=== PATIENT | male | born 1985 | race Caucasian/White ===

== ENCOUNTER 2019-02-03 12:46 | Inpatient (IN) | payer MEDICAID, MEDICARE ==
[2019-02-03] MEDS ORDERED: Piperacillin/Tazobactam 4.5 GM VIAL ONE (13:10)
[2019-02-03] MEDS ORDERED: Sodium Chloride 0.9% 1,000 ML IV SCH (13:30)
[2019-02-03] MEDS ORDERED: HYDROcodone/Acetaminophen 5/325 mg Tablet PO PRN ×2 (13:30)
[2019-02-03] MEDS ORDERED: Ondansetron PF 4 MG/2 ML Vial IVP PRN ×2 (13:30→16:23)
[2019-02-03] MEDS ORDERED: Ondansetron ODT 4 MG TAB SL PRN (13:30)
[2019-02-03] MEDS ORDERED: Acetaminophen 325 MG TAB PO PRN (13:30)
[2019-02-03 13:33] LABS: Hemoglobin 14.4 g/dL (14.0-18.0); Mean Corpuscular HGB CONC 31.2 g/dL (32.0-36.0); Mean Corpuscular Hemoglobin 25.8 pg (27.0-31.0); Mean Corpuscular Volume 82.8 fL (78.0-98.0); Mean Platelet Volume 8.1 fL (7.4-10.4); Platelet Count 197 thou/uL (130-400); RBC Distribution Width 13.6 % (11.5-14.5); Red Blood Cell (RBC) Count 5.56 mill/uL (4.70-6.10); White Blood Cell (WBC) Count 25.2 thou/uL (4.8-10.8)
[2019-02-03 13:59] LABS: Band 15 % (5-11); Hypochromia SLIGHT = 6-15 cells (100X) (0-5/hpf); Lymphocytes 9 % (21-51); MDiff Complete? YES; Monocytes 7 % (0-10); Neutrophil 69 % (42-75); Platelet Morphology Comment Appears Adequate; Polychromasia SLIGHT = 2-3 cells (100X) (0-2/hpf); Stomatocytes SLIGHT = 2-5 cells (100X) (0-1/hpf)
[2019-02-03 14:26] LABS: ALT (SGPT) 23 U/L (8-55); AST (SGOT) 27 U/L (5-34); Alkaline Phosphatase 62 U/L (40-150); Anion Gap 13 mmol/L (10-20); BUN (Urea Nitrogen) 17 mg/dL (8.9-20.6); Bilirubin, Total 1.1 mg/dL (0.2-1.2); Calc. Creatinine Clearance 0 mL/min (70-130); Calcium 9.3 mg/dL (7.8-10.44); Carbon Dioxide 28 mmol/L (22-29); Chloride 100 mmol/L (98-107); Estimated GFR-MDRD 58; Globulin 3.7 g/dL (2.4-3.5); Glucose 107 mg/dL (70-105); Potassium 3.5 mmol/L (3.5-5.1); Protein, Total 7.7 g/dL (6.0-8.3); Sodium 137 mmol/L (136-145)
--- NOTE | 2019-02-03 14:36 | RAD ---
RIGHT TIBIA FIBULA 2 VIEWS: HISTORY: Erythema and pain. COMPARISON: None. FINDINGS: No fracture. No cortical irregularity or periosteal reaction. IMPRESSION: Unremarkable 2 views right tibia/fibula. POS: [facility]
--- NOTE | 2019-02-03 14:47 | ULT ---
RIGHT LOWER EXTREMITY VENOUS DOPPLER: DATE: 02/03/2019. PROVIDED CLINICAL HISTORY: RIGHT lower extremity pain. FINDINGS: Luevano scale and color Doppler sonography with spectral analysis was performed of the right common femo ral, femoral, popliteal, posterior tibial, greater saphenous, and profunda femoral veins, demonstrati ng normal sonographic appearance to each. IMPRESSION: No sonographic evidence for right lower extremity deep venous thrombosis. POS: [facility]
--- NOTE | 2019-02-03 14:56 | CT ---
CT OF THE RIGHT FORELEG WITHOUT CONTRAST: DATE: 02/03/2019. PROVIDED CLINICAL HISTORY: Right lower extremity pain and redness. FINDINGS: There is nonspecific reticulation of the subcutaneous adipose layer circumferentially about the forel eg, predominating distally. There is no density alteration involving the intermuscular fat or the in tramuscular fat. There is no evidence for soft tissue gas. Alignment appears anatomic. Joint space s appear preserved. No significant knee joint fluid is present. There is no evidence for fracture o r other acute osseous abnormality. No lytic or blastic process is seen. IMPRESSION: Nonspecific reticulation of the subcutaneous adipose layer involving the right foreleg, likely reflec ting cellulitis in the appropriate clinical context. There is no CT evidence for fasciitis or myosit is. No evidence for focal fluid collection to suggest abscess with limitations due to lack of IV con trast. POS: [facility]
[2019-02-03 15:30] VITALS: BMI 38.2
[2019-02-03] MEDS ORDERED: Senokot S 8.6-50 MG TAB PO PRN (16:23)
[2019-02-03] MEDS ORDERED: Calcium Carbonate 500 MG ChewTAB PO PRN (16:23)
[2019-02-03] MEDS ORDERED: Bisacodyl 10 MG SUPP PR PRN (16:23)
[2019-02-03] MEDS ORDERED: Ondansetron ODT 4 MG TAB PO PRN (16:23)
[2019-02-03] MEDS ORDERED: hydrALAZINE 20 MG/ML VIAL SLOW IVP PRN (16:25)
[2019-02-03] MEDS ORDERED: Vancomycin HCl 1 GM in Premix Bag 1 BAG IVPB SCH (16:30)
[2019-02-03] MEDS: Sodium Chloride 0.9% 1,000 ML IV SCH (16:50)
[2019-02-03] MEDS: cefTRIAXone\\ROCEPHIN 1 GM in Sodium Chloride 0.9% 100 ML IVPB SCH (16:50)
--- NOTE | 2019-02-03 17:05 | HP ---
PRIMARY CARE PHYSICIAN: Trevor Goodwin. The patient saw Dr. Kushal Stanley in 2011. He has not seen any PCP since then. CHIEF COMPLAINT: Right leg swelling of 2 days duration along with fever and chills. HISTORY OF PRESENT ILLNESS: The patient is a 33-year-old male who presented to the emergency room with above symptoms. Over the last 2 to 3 days, the patient noticed gradual worsening redness along with warmth in the right lower extremity. He cannot recall any injuries. He also started developing pain in the right lower extremity that was getting worse. He also had some discomfort in the right groin. This morning, he started developing fever and chills along with nausea. He felt generally weak and fatigued. He then presented to the emergency room. He denies recent immobilization, travel. No dysuria, hematuria, urgency, cough, shortness of breath, wheezing reported. In the emergency room, initial vital signs showed temperature 99.5 respiration of 14, pulse rate of 114, with a blood pressure 125/83 with O2 saturation 95% on room air. Right lower extremity Doppler was negative for DVT. CT of the right lower extremity showed changes consistent with cellulitis without any abscess. X-ray of the right tibia-fibula was negative. He received vancomycin and Zosyn in the emergency room. Blood cultures were sent. PAST MEDICAL HISTORY: 1. Hypertension, currently not taking any medications. 2. Obesity with a BMI of 38.3. PAST SURGICAL HISTORY: 1. Hernia repair. 2. Intervention for renal stone in 2012. ALLERGIES: THE PATIENT IS ALLERGIC TO CODEINE. CURRENT HOME MEDICATIONS: Reviewed with the patient and none. SOCIAL HISTORY: The patient drinks alcohol socially. He smokes cigarettes on and off. He currently lives at home with his family. FAMILY HISTORY: Positive for heart disease and diabetes mellitus type 2. REVIEW OF SYSTEMS: All other review of systems were reviewed and were found negative. PHYSICAL EXAMINATION: VITAL SIGNS: Temperature 99.5, respirations 14, pulse 114, with blood pressure 125/83, O2 saturation 95% on room air. GENERAL: A 33-year-old male in no apparent distress. Right lower extremity discomfort. HEENT: Head; atraumatic, normocephalic. Sclerae anicteric. Moist mucous membranes. No oral lesion. NECK: Supple. No JVD appreciated. No carotid bruit. LUNGS: Clear to auscultation bilaterally. No wheezing, rales, rhonchi. HEART: S1, S2 present. Regular rate and rhythm. No rubs or gallops appreciated. ABDOMEN: Soft, obese, bowel sounds present. No rebound or guarding. No costovertebral angle tenderness. EXTREMITIES: Significant erythema along with swelling in the right lower extremity. There are superficial abrasions over the medial aspect of the right leg, probably the source of entry. No joint swelling noted. There is 2+ edema in right lower extremity. No swelling in the left lower extremity. SKIN: As discussed above. LYMPH NODE: No palpable lymph nodes in the neck. PERIPHERAL VASCULAR: Radial pulses palpable bilaterally. MUSCULOSKELETAL: No joint swelling or tenderness. LABORATORY FINDINGS: CBC showed WBC 25.2, hemoglobin 14.4, hematocrit 46.1, platelet count of 197, bandemia of 15%. Chemistries showed sodium 137, potassium 3.5, chloride 100, bicarb 28, BUN 17, and creatinine 1.4. Lactic acid was normal. Creatinine in 2016 was 1.05. Right lower extremity CT and x-ray, by my review as discussed above. IMPRESSION: 1. Sepsis secondary to right lower extremity cellulitis. 2. History of hypertension, currently on no antihypertensives. 3. Codeine allergy. 4. Obesity with a BMI of 38.3. 5. Mild acute kidney injury on chronic kidney disease stage 2. PLAN: The patient will be monitored in the medical floor. We will continue IV vancomycin with Zosyn. Full of. We will avoid nephrotoxic agents. Pain controlled with Tylenol. Recheck labs in a.m. The patient was counseled to be compliant with follow up with primary care physician. IV hydration for acute kidney injury. Monitor vancomycin level. Plan of care was discussed with the patient in detail. He stated understanding. Job ID: [id number]
[2019-02-03] MEDS: Acetaminophen 325 MG TAB PO PRN ×2 (17:20→22:42)
[2019-02-03] MEDS ORDERED: Piperacillin/Tazobactam 3.375 GM in Sodium Chloride 0.9% 100 ML IVPB SCH (22:00)
[2019-02-03] MEDS ORDERED: Morphine 4 MG/ML VIAL SLOW IVP SCH (22:30)
[2019-02-04] MEDS: Vancomycin HCl 1.75 GM in Sodium Chloride 0.9% 500 ML IVPB SCH ×2 (02:57→14:26)
[2019-02-04] MEDS: Sodium Chloride 0.9% 1,000 ML IV SCH ×2 (04:28→17:29)
[2019-02-04 06:47] LABS: Band 34 % (5-11); Hemoglobin 13.2 g/dL (14.0-18.0); Lymphocytes 7 % (21-51); MDiff Complete? YES; Mean Corpuscular HGB CONC 31.2 g/dL (32.0-36.0); Mean Corpuscular Hemoglobin 26.2 pg (27.0-31.0); Mean Corpuscular Volume 83.8 fL (78.0-98.0); Mean Platelet Volume 8.2 fL (7.4-10.4); Monocytes 4 % (0-10); Neutrophil 52 % (42-75); Platelet Count 171 thou/uL (130-400); Platelet Morphology Comment Appears Adequate; RBC Distribution Width 13.6 % (11.5-14.5); Reactive Lymphocytes 1 % (0-10); Red Blood Cell (RBC) Count 5.06 mill/uL (4.70-6.10)
[2019-02-04 06:53] LABS: Anion Gap 9 mmol/L (10-20); BUN (Urea Nitrogen) 13 mg/dL (8.9-20.6); Calc. Creatinine Clearance 148 mL/min (70-130); Calcium 8.8 mg/dL (7.8-10.44); Carbon Dioxide 29 mmol/L (22-29); Chloride 102 mmol/L (98-107); Estimated GFR-MDRD 71; Glucose 101 mg/dL (70-105); Potassium 3.3 mmol/L (3.5-5.1); Sodium 137 mmol/L (136-145)
[2019-02-04] MEDS: Acetaminophen 325 MG TAB PO PRN (08:06)
[2019-02-04] MEDS: Saccharomyces boulardii 250 MG CAP PO SCH (08:06)
[2019-02-04] MEDS ORDERED: Ketorolac Tromethamine 30 MG/ML VIAL IVP PRN (10:59)
--- NOTE | 2019-02-04 17:11 | PDOC.PN ---
- Subjective Encounter Start Date: 02/04/19 Encounter Start Time: 09:45 Patient seen and examined for Sepsis. RLE erythema improving. No new complaints. No overnight events - Objective Resuscitation Status - Order Detail: 02/03/19 16:23 Resuscitation Status Routine Resuscitation Status: FULL: Full Resuscitation MAR Reviewed: Yes Vital Signs & Weight: Vital Signs (12 hours) Temp Pulse Resp BP Pulse Ox 02/04/19 16:50 99.0 F 101 H 16 146/80 H 94 L 02/04/19 11:44 98.9 F 94 16 132/90 95 02/04/19 08:00 94 L 02/04/19 07:45 99.9 F H 103 H 18 136/74 94 L Weight Weight 259 lb 3.2 oz Result Diagrams: 02/04/19 06:09 02/04/19 06:09 Additional Labs: Laboratory Tests 02/04/19 06:09 Potassium 3.3 L Phys Exam - Physical Examination Constitutional: NAD Respiratory: no wheezing, no rhonchi Cardiovascular: RRR, no rub Gastrointestinal: soft, non-tender, positive bowel sounds Musculoskeletal: edema present Erythema RLE - improving Neurological: moves all 4 limbs Dx/Plan - Plan out of bed/ambulate, DVT proph w/SCDs IMPRESSION: 1. Sepsis secondary to right lower extremity cellulitis. 2. History of hypertension 3. Codeine allergy. 4. Obesity with a BMI of 38.3. 5. Mild acute kidney injury on chronic kidney disease stage 2. 6. Hypokalemia PLAN: Cont IV Vancomycin/Ceftriaxone Monitor Vancomycin level AM labs Replace Potassium Ambulate Cont IVF Review of Systems - Review of Systems Cardiovascular: negative: chest pain, palpitations, orthopnea, paroxysmal nocturnal dyspnea, edema, light headedness, other Gastrointestinal: negative: Nausea, Vomiting, Abdominal Pain, Diarrhea, Constipation, Melena, Hematochezia, Other - Medications/Allergies Allergies/Adverse Reactions: Allergies Allergy/AdvReac Type Severity Reaction Status Date / Time codeine Allergy Verified 02/03/19 15:22 Medications: Current Medications Acetaminophen (Tylenol) 650 mg PO Q4H PRN PRN Reason: Headache/Fever/Mild Pain (1-3) Last Admin: 02/04/19 08:06 Dose: 650 mg Bisacodyl (Dulcolax) 10 mg [place] DAILYPRN PRN PRN Reason: Constipation Calcium Carbonate (Tums) 1,000 mg PO Q4H PRN PRN Reason: Heartburn or Indigestion Hydralazine HCl (Apresoline) 10 mg SLOW IVP Q4H PRN PRN Reason: SBP Greater Than 180 Sodium Chloride (Normal Saline 0.9%) 1,000 mls @ 75 mls/hr IV .[id number] [facility] Last Admin: 02/04/19 04:28 Dose: Not Given Ceftriaxone Sodium 1 gm/ (Sodium Chloride) 100 mls @ 200 mls/hr IVPB Q24HR [facility] Last Admin: 02/03/19 16:50 Dose: 100 mls Vancomycin HCl 1.75 gm/ Sodium (Chloride) 500 mls @ 250 mls/hr IVPB 0200,1400 [facility] Last Admin: 02/04/19 14:26 Dose: 500 mls Ibuprofen (Motrin) 400 mg PO Q6H PRN PRN Reason: Pain Influenza Virus Vaccine Quadrival (Fluzone Quad [id number] Syringe) 0.5 ml IM .ONCE ONE Stop: 02/05/19 09:01 Ketorolac Tromethamine (Toradol) 15 mg IVP Q6H PRN PRN Reason: Severe Pain (7-10) Stop: 02/09/19 11:00 Last Admin: 02/04/19 13:09 Dose: 15 mg Miscellaneous Medication (Pharmacy To Dose) 0 each IVPB PRN PRN PRN Reason: Pharmacy to dose [facility] Ondansetron HCl (Zofran Odt) 4 mg PO Q6H PRN PRN Reason: Nausea/Vomiting Ondansetron HCl (Zofran) 4 mg IVP Q6H PRN PRN Reason: Nausea/Vomiting Pneumococcal Polyvalent Vaccine (Pneumovax 23) 0.5 ml IM .ONCE ONE Stop: 02/05/19 09:01 Potassium Chloride (K-Dur) 20 meq PO BID-[facility] Stop: 02/05/19 08:01 Saccharomyces Boulardii (Florastor) 250 mg PO DAILY [facility] Last Admin: 02/04/19 08:06 Dose: 250 mg Senna/Docusate Sodium (Senokot S) 2 tab PO BID PRN PRN Reason: Constipation
[2019-02-04] MEDS: cefTRIAXone\\ROCEPHIN 1 GM in Sodium Chloride 0.9% 100 ML IVPB SCH (17:27)
[2019-02-04] MEDS: Ibuprofen 200 MG TAB PO PRN (17:28)
[2019-02-04] MEDS: Potassium Chloride 20 MEQ TAB PO SCH (17:28)
[2019-02-05 01:48] LABS: Vancomycin, Trough 13.3 ug/mL
[2019-02-05] MEDS: Vancomycin HCl 1.75 GM in Sodium Chloride 0.9% 500 ML IVPB SCH ×2 (02:02→13:24)
[2019-02-05] MEDS: Acetaminophen 325 MG TAB PO PRN (04:49)
[2019-02-05] MEDS: Saccharomyces boulardii 250 MG CAP PO SCH (08:22)
[2019-02-05] MEDS: Potassium Chloride 20 MEQ TAB PO SCH (08:22)
[2019-02-05] MEDS: Ibuprofen 200 MG TAB PO PRN (08:22)
[2019-02-05] MEDS: Sodium Chloride 0.9% 1,000 ML IV SCH ×2 (08:23→22:03)
[2019-02-05 08:31] LABS: #Basophils 0.1 thou/uL (0.0-0.2); #Eosinphils 0.4 thou/uL (0.0-0.7); #Lymphocytes 1.5 thou/uL (1.20-3.40); #Monocytes 0.9 thou/uL (0.11-0.59); #Neutrophils 10.9 thou/uL (1.40-6.50); %Basophils 0.5 % (0.0-1.0); %Eosinophils 2.7 % (0.0-10.0); %Lymphocytes 10.6 % (21.0-51.0); %Monocytes 6.7 % (0.0-10.0); %Neutrophils 79.5 % (42.0-75.0); Hemoglobin 12.9 g/dL (14.0-18.0); Mean Corpuscular Hemoglobin 25.9 pg (27.0-31.0); Mean Corpuscular Volume 83.4 fL (78.0-98.0); Mean Platelet Volume 8.7 fL (7.4-10.4); Platelet Count 185 thou/uL (130-400); RBC Distribution Width 13.6 % (11.5-14.5); Red Blood Cell (RBC) Count 4.98 mill/uL (4.70-6.10); White Blood Cell (WBC) Count 13.7 thou/uL (4.8-10.8)
[2019-02-05 08:43] LABS: Anion Gap 12 mmol/L (10-20); BUN (Urea Nitrogen) 12 mg/dL (8.9-20.6); Calc. Creatinine Clearance 175 mL/min (70-130); Calcium 8.7 mg/dL (7.8-10.44); Carbon Dioxide 25 mmol/L (22-29); Chloride 106 mmol/L (98-107); Estimated GFR-MDRD 87; Glucose 109 mg/dL (70-105); Magnesium 1.8 mg/dL (1.6-2.6); Potassium 3.5 mmol/L (3.5-5.1); Sodium 139 mmol/L (136-145)
[2019-02-05] MEDS: cefTRIAXone\\ROCEPHIN 1 GM in Sodium Chloride 0.9% 100 ML IVPB SCH (19:20)
--- NOTE | 2019-02-05 20:56 | PDOC.PN ---
- Subjective Encounter Start Date: 02/05/19 Encounter Start Time: 10:30 Patient seen and examined for Cellulitis. RLE swelling improving. No new complaints. No overnight events - Objective Resuscitation Status - Order Detail: 02/03/19 16:23 Resuscitation Status Routine Resuscitation Status: FULL: Full Resuscitation MAR Reviewed: Yes Vital Signs & Weight: Vital Signs (12 hours) Temp Pulse Resp BP Pulse Ox 02/05/19 20:24 99.1 F 100 16 164/109 H 100 02/05/19 11:00 98.5 F 92 18 134/94 H 95 Weight Weight 259 lb 3.2 oz I&O: 02/04/19 02/05/19 02/06/19 06:59 06:59 06:59 Intake Total 1400 Output Total 700 Balance 700 Result Diagrams: 02/05/19 07:54 02/05/19 07:54 Phys Exam - Physical Examination Constitutional: NAD Respiratory: no wheezing, no rhonchi Cardiovascular: RRR, no rub Gastrointestinal: soft, non-tender, positive bowel sounds Musculoskeletal: edema present RLE erythema Dx/Plan - Plan DVT proph w/SCDs 1. Sepsis secondary to RLE cellulitis. 2. History of hypertension 3. Codeine allergy. 4. Obesity with a BMI of 38.3. 5. Mild acute kidney injury on CKD stage 2. 6. Hypokalemia PLAN: Cont IV Vancomycin/Ceftriaxone Monitor Vancomycin level Reduce IVF Review of Systems - Review of Systems Respiratory: negative: Cough, Dry, Shortness of Breath, Hemoptysis, SOB with Excertion, Pleuritic Pain, Sputum, Wheezing Cardiovascular: negative: chest pain, palpitations, orthopnea, paroxysmal nocturnal dyspnea, edema, light headedness, other - Medications/Allergies Allergies/Adverse Reactions: Allergies Allergy/AdvReac Type Severity Reaction Status Date / Time codeine Allergy Verified 02/03/19 15:22 Medications: Current Medications Acetaminophen (Tylenol) 650 mg PO Q4H PRN PRN Reason: Headache/Fever/Mild Pain (1-3) Last Admin: 02/05/19 04:49 Dose: 650 mg Bisacodyl (Dulcolax) 10 mg [place] DAILYPRN PRN PRN Reason: Constipation Calcium Carbonate (Tums) 1,000 mg PO Q4H PRN PRN Reason: Heartburn or Indigestion Hydralazine HCl (Apresoline) 10 mg SLOW IVP Q4H PRN PRN Reason: SBP Greater Than 180 Ceftriaxone Sodium 1 gm/ (Sodium Chloride) 100 mls @ 200 mls/hr IVPB Q24HR [facility] Last Admin: 02/05/19 19:20 Dose: 100 mls Vancomycin HCl 1.75 gm/ Sodium (Chloride) 500 mls @ 250 mls/hr IVPB 0200,1400 [facility] Last Admin: 02/05/19 13:24 Dose: 500 mls Sodium Chloride (Normal Saline 0.9%) 1,000 mls @ 50 mls/hr IV .Q20H [facility] Ibuprofen (Motrin) 400 mg PO Q6H PRN PRN Reason: Pain Last Admin: 02/05/19 08:22 Dose: 400 mg Miscellaneous Medication (Pharmacy To Dose) 0 each IVPB PRN PRN PRN Reason: Pharmacy to dose [facility] Ondansetron HCl (Zofran Odt) 4 mg PO Q6H PRN PRN Reason: Nausea/Vomiting Ondansetron HCl (Zofran) 4 mg IVP Q6H PRN PRN Reason: Nausea/Vomiting Saccharomyces Boulardii (Florastor) 250 mg PO DAILY [facility] Last Admin: 02/05/19 08:22 Dose: 250 mg Senna/Docusate Sodium (Senokot S) 2 tab PO BID PRN PRN Reason: Constipation
[2019-02-05] MEDS ORDERED: Labetalol HCl 100 MG/20 ML VIAL SLOW IVP PRN (23:25)
[2019-02-06] MEDS: Acetaminophen 325 MG TAB PO PRN ×2 (00:18→08:31)
[2019-02-06] MEDS: Vancomycin HCl 1.75 GM in Sodium Chloride 0.9% 500 ML IVPB SCH ×2 (03:08→13:04)
[2019-02-06] MEDS: Saccharomyces boulardii 250 MG CAP PO SCH (08:31)
[2019-02-06] MEDS: Ibuprofen 200 MG TAB PO PRN (13:04)
[2019-02-06] MEDS: cefTRIAXone\\ROCEPHIN 1 GM in Sodium Chloride 0.9% 100 ML IVPB SCH (18:28)
[2019-02-06] MEDS: Sodium Chloride 0.9% 1,000 ML IV SCH (18:29)
--- NOTE | 2019-02-06 21:27 | PDOC.PN ---
- Subjective Encounter Start Date: 02/06/19 Encounter Start Time: 11:00 Patient seen and examined for Sepsis. RLE swelling erythema improving. No new complaints. No overnight events - Objective Resuscitation Status - Order Detail: 02/03/19 16:23 Resuscitation Status Routine Resuscitation Status: FULL: Full Resuscitation MAR Reviewed: Yes Vital Signs & Weight: Vital Signs (12 hours) Temp Pulse Resp BP Pulse Ox 02/06/19 20:00 99.4 F 99 20 166/106 H 96 02/06/19 17:47 97.9 F 95 20 154/88 H 96 02/06/19 12:00 98.9 F 88 20 149/89 H 97 Weight Admit Weight 259 lb 3.2 oz Weight 259 lb 3.2 oz I&O: 02/05/19 02/06/19 02/07/19 06:59 06:59 06:59 Intake Total 1400 Output Total 700 Balance 700 Result Diagrams: 02/05/19 07:54 02/05/19 07:54 Phys Exam - Physical Examination Constitutional: NAD Respiratory: no wheezing, no rhonchi Cardiovascular: RRR, no rub Gastrointestinal: soft, non-tender, positive bowel sounds Musculoskeletal: edema present RLE erythema improving Dx/Plan - Plan DVT proph w/SCDs 1. Sepsis secondary to RLE cellulitis - improving 2. Hypertension 3. Codeine allergy. 4. Obesity with a BMI of 38.3. 5. Mild acute kidney injury on CKD stage 2. 6. Hypokalemia PLAN: AM labs DC IVF Cont IV Vancomycin/Ceftriaxone Vancomycin level in AM Review of Systems - Review of Systems Respiratory: negative: Cough, Dry, Shortness of Breath, Hemoptysis, SOB with Excertion, Pleuritic Pain, Sputum, Wheezing Cardiovascular: negative: chest pain, palpitations, orthopnea, paroxysmal nocturnal dyspnea, edema, light headedness, other - Medications/Allergies Allergies/Adverse Reactions: Allergies Allergy/AdvReac Type Severity Reaction Status Date / Time codeine Allergy Verified 02/03/19 15:22 Medications: Current Medications Acetaminophen (Tylenol) 650 mg PO Q4H PRN PRN Reason: Headache/Fever/Mild Pain (1-3) Last Admin: 02/06/19 08:31 Dose: 650 mg Bisacodyl (Dulcolax) 10 mg [place] DAILYPRN PRN PRN Reason: Constipation Calcium Carbonate (Tums) 1,000 mg PO Q4H PRN PRN Reason: Heartburn or Indigestion Hydralazine HCl (Apresoline) 10 mg SLOW IVP Q4H PRN PRN Reason: SBP Greater Than 180 Last Admin: 02/05/19 22:17 Dose: 10 mg Ceftriaxone Sodium 1 gm/ (Sodium Chloride) 100 mls @ 200 mls/hr IVPB Q24HR [facility] Last Admin: 02/06/19 18:28 Dose: 100 mls Vancomycin HCl 1.75 gm/ Sodium (Chloride) 500 mls @ 250 mls/hr IVPB 0200,1400 [facility] Last Admin: 02/06/19 13:04 Dose: 500 mls Ibuprofen (Motrin) 400 mg PO Q6H PRN PRN Reason: Pain Last Admin: 02/06/19 13:04 Dose: 400 mg Labetalol HCl (Normodyne) 20 mg SLOW IVP Q4H PRN PRN Reason: SBP > 170 and HR >/= 70 Miscellaneous Medication (Pharmacy To Dose) 0 each IVPB PRN PRN PRN Reason: Pharmacy to dose [facility] Ondansetron HCl (Zofran Odt) 4 mg PO Q6H PRN PRN Reason: Nausea/Vomiting Ondansetron HCl (Zofran) 4 mg IVP Q6H PRN PRN Reason: Nausea/Vomiting Saccharomyces Boulardii (Florastor) 250 mg PO DAILY [facility] Last Admin: 02/06/19 08:31 Dose: 250 mg Senna/Docusate Sodium (Senokot S) 2 tab PO BID PRN PRN Reason: Constipation Sodium Chloride (Flush - Normal Saline) 10 ml IVF Q12HR [facility] Last Admin: 02/06/19 20:36 Dose: 10 ml Sodium Chloride (Flush - Normal Saline) 10 ml IVF PRN PRN PRN Reason: Saline Flush
[2019-02-07] MEDS: Acetaminophen 325 MG TAB PO PRN ×2 (00:07→15:53)
[2019-02-07 01:33] LABS: Vancomycin, Trough 14.3 ug/mL
[2019-02-07] MEDS: Vancomycin HCl 1.75 GM in Sodium Chloride 0.9% 500 ML IVPB SCH ×2 (01:49→15:49)
[2019-02-07 06:32] LABS: #Basophils 0.1 thou/uL (0.0-0.2); #Eosinphils 0.7 thou/uL (0.0-0.7); #Neutrophils 10.4 thou/uL (1.40-6.50); %Basophils 0.6 % (0.0-1.0); %Eosinophils 4.9 % (0.0-10.0); %Lymphocytes 14.2 % (21.0-51.0); %Monocytes 7.3 % (0.0-10.0); Hemoglobin 12.9 g/dL (14.0-18.0); Mean Corpuscular HGB CONC 32.1 g/dL (32.0-36.0); Mean Corpuscular Hemoglobin 26.3 pg (27.0-31.0); Mean Corpuscular Volume 81.9 fL (78.0-98.0); Platelet Count 250 thou/uL (130-400); RBC Distribution Width 13.4 % (11.5-14.5); Red Blood Cell (RBC) Count 4.92 mill/uL (4.70-6.10); White Blood Cell (WBC) Count 14.3 thou/uL (4.8-10.8)
[2019-02-07 06:48] LABS: Anion Gap 13 mmol/L (10-20); BUN (Urea Nitrogen) 9 mg/dL (8.9-20.6); Calc. Creatinine Clearance 204 mL/min (70-130); Carbon Dioxide 24 mmol/L (22-29); Chloride 105 mmol/L (98-107); Estimated GFR-MDRD Greater than 90; Glucose 92 mg/dL (70-105); Potassium 3.6 mmol/L (3.5-5.1); Sodium 138 mmol/L (136-145)
[2019-02-07] MEDS: Ibuprofen 200 MG TAB PO PRN (08:48)
[2019-02-07] MEDS: Saccharomyces boulardii 250 MG CAP PO SCH (08:48)
[2019-02-07] MEDS: Amlodipine 5 MG TAB PO SCH (11:15)
[2019-02-07] MEDS: cefTRIAXone\\ROCEPHIN 1 GM in Sodium Chloride 0.9% 100 ML IVPB SCH (18:24)
--- NOTE | 2019-02-07 21:42 | PDOC.PN ---
- Subjective Encounter Start Date: 02/07/19 Encounter Start Time: 09:30 Patient seen and examined for cellulitis. RLE erythema improving. No new complaints. No overnight events - Objective Resuscitation Status - Order Detail: 02/03/19 16:23 Resuscitation Status Routine Resuscitation Status: FULL: Full Resuscitation MAR Reviewed: Yes Vital Signs & Weight: Vital Signs (12 hours) Pulse BP BP 02/07/19 15:55 127/79 02/07/19 11:15 107 H 165/104 H Weight Admit Weight 259 lb 3.2 oz Weight 259 lb 3.2 oz Result Diagrams: 02/07/19 06:11 02/07/19 06:11 Phys Exam - Physical Examination Constitutional: NAD Respiratory: no wheezing, no rhonchi Cardiovascular: RRR, no rub Gastrointestinal: soft, non-tender, positive bowel sounds Musculoskeletal: edema present (RLE with improving erythema. few blisters) Dx/Plan - Plan 1. Sepsis secondary to RLE cellulitis. 2. Hypertension 3. Codeine allergy. 4. Obesity with a BMI of 38.3. 5. Mild acute kidney injury on CKD stage 2. 6. Hypokalemia PLAN: Cont IV Vancomycin/Ceftriaxone for 24-48 hr Vancomycin level in AM Cont wound care Prob dc in 24-48 hr if stable Review of Systems - Review of Systems Respiratory: negative: Cough, Dry, Shortness of Breath, Hemoptysis, SOB with Excertion, Pleuritic Pain, Sputum, Wheezing Cardiovascular: negative: chest pain, palpitations, orthopnea, paroxysmal nocturnal dyspnea, edema, light headedness, other - Medications/Allergies Allergies/Adverse Reactions: Allergies Allergy/AdvReac Type Severity Reaction Status Date / Time codeine Allergy Verified 02/03/19 15:22 Medications: Current Medications Acetaminophen (Tylenol) 650 mg PO Q4H PRN PRN Reason: Headache/Fever/Mild Pain (1-3) Last Admin: 02/07/19 15:53 Dose: 650 mg Amlodipine Besylate (Norvasc) 2.5 mg PO DAILY [facility] Last Admin: 02/07/19 11:15 Dose: 2.5 mg Bisacodyl (Dulcolax) 10 mg [place] DAILYPRN PRN PRN Reason: Constipation Calcium Carbonate (Tums) 1,000 mg PO Q4H PRN PRN Reason: Heartburn or Indigestion Clonidine (Catapres) 0.1 mg PO Q4H PRN PRN Reason: Systolic BP > 160 Hydralazine HCl (Apresoline) 10 mg SLOW IVP Q4H PRN PRN Reason: SBP Greater Than 180 Last Admin: 02/05/19 22:17 Dose: 10 mg Ceftriaxone Sodium 1 gm/ (Sodium Chloride) 100 mls @ 200 mls/hr IVPB Q24HR [facility] Last Admin: 02/07/19 18:24 Dose: 100 mls Vancomycin HCl 1.75 gm/ Sodium (Chloride) 500 mls @ 250 mls/hr IVPB 0200,1400 [facility] Last Admin: 02/07/19 15:49 Dose: 500 mls Ibuprofen (Motrin) 400 mg PO Q6H PRN PRN Reason: Pain Last Admin: 02/07/19 08:48 Dose: 400 mg Miscellaneous Medication (Pharmacy To Dose) 0 each IVPB PRN PRN PRN Reason: Pharmacy to dose [facility] Ondansetron HCl (Zofran Odt) 4 mg PO Q6H PRN PRN Reason: Nausea/Vomiting Ondansetron HCl (Zofran) 4 mg IVP Q6H PRN PRN Reason: Nausea/Vomiting Saccharomyces Boulardii (Florastor) 250 mg PO DAILY [facility] Last Admin: 02/07/19 08:48 Dose: 250 mg Senna/Docusate Sodium (Senokot S) 2 tab PO BID PRN PRN Reason: Constipation Sodium Chloride (Flush - Normal Saline) 10 ml IVF Q12HR [facility] Last Admin: 02/07/19 08:48 Dose: 10 ml Sodium Chloride (Flush - Normal Saline) 10 ml IVF PRN PRN PRN Reason: Saline Flush
[2019-02-08] MEDS: Vancomycin HCl 1.75 GM in Sodium Chloride 0.9% 500 ML IVPB SCH ×2 (01:07→13:30)
[2019-02-08] MEDS: cloNIDine 0.1 MG TAB PO PRN (09:13)
[2019-02-08] MEDS: Amlodipine 5 MG TAB PO SCH ×2 (09:14→20:29)
[2019-02-08] MEDS: Saccharomyces boulardii 250 MG CAP PO SCH (09:14)
[2019-02-08] MEDS: Ibuprofen 200 MG TAB PO PRN (13:35)
[2019-02-08 13:43] LABS: Vancomycin, Trough 14.8 ug/mL
[2019-02-08] MEDS: cefTRIAXone\\ROCEPHIN 1 GM in Sodium Chloride 0.9% 100 ML IVPB SCH (16:51)
--- NOTE | 2019-02-08 22:51 | PDOC.PN ---
- Subjective Encounter Start Date: 02/08/19 Encounter Start Time: 11:00 Patient seen and examined for RLE Cellulitis. Unable to ambulate due to significant RLE pain. No new complaints. No overnight events - Objective Resuscitation Status - Order Detail: 02/03/19 16:23 Resuscitation Status Routine Resuscitation Status: FULL: Full Resuscitation MAR Reviewed: Yes Vital Signs & Weight: Vital Signs (12 hours) Temp Pulse Resp BP BP BP Pulse Ox 02/08/19 20:29 79 151/82 H 02/08/19 19:00 98.3 F 79 20 151/82 H 96 02/08/19 17:05 98.7 F 93 18 160/85 H 96 02/08/19 11:38 98.7 F 98 18 143/90 H 97 Weight Admit Weight 259 lb 3.2 oz Weight 259 lb 3.2 oz Result Diagrams: 02/09/19 05:31 02/09/19 05:31 Phys Exam - Physical Examination Constitutional: NAD Respiratory: no wheezing, no rhonchi Cardiovascular: RRR, no rub Gastrointestinal: soft, non-tender, positive bowel sounds Musculoskeletal: edema present RLE erythema - dressing present Neurological: moves all 4 limbs Dx/Plan - Plan DVT proph w/SCDs 1. Sepsis secondary to RLE cellulitis. 2. Hypertension 3. Codeine allergy. 4. Obesity with a BMI of 38.3. 5. Mild acute kidney injury on CKD stage 2. 6. Hypokalemia PLAN: DC IV Vancomycin Change IV Ceftriaxone to BID Cont wound care Prob dc in 24-48 hr if stable Walking program Review of Systems - Review of Systems Respiratory: negative: Cough, Dry, Shortness of Breath, Hemoptysis, SOB with Excertion, Pleuritic Pain, Sputum, Wheezing Cardiovascular: negative: chest pain, palpitations, orthopnea, paroxysmal nocturnal dyspnea, edema, light headedness, other - Medications/Allergies Allergies/Adverse Reactions: Allergies Allergy/AdvReac Type Severity Reaction Status Date / Time codeine Allergy Verified 02/03/19 15:22 Medications: Current Medications Acetaminophen (Tylenol) 650 mg PO Q4H PRN PRN Reason: Headache/Fever/Mild Pain (1-3) Last Admin: 02/07/19 15:53 Dose: 650 mg Amlodipine Besylate (Norvasc) 2.5 mg PO BID [facility] Last Admin: 02/08/19 20:29 Dose: 2.5 mg Bisacodyl (Dulcolax) 10 mg [place] DAILYPRN PRN PRN Reason: Constipation Calcium Carbonate (Tums) 1,000 mg PO Q4H PRN PRN Reason: Heartburn or Indigestion Clonidine (Catapres) 0.1 mg PO Q4H PRN PRN Reason: Systolic BP > 160 Last Admin: 02/08/19 09:13 Dose: 0.1 mg Hydralazine HCl (Apresoline) 10 mg SLOW IVP Q4H PRN PRN Reason: SBP Greater Than 180 Last Admin: 02/05/19 22:17 Dose: 10 mg Ceftriaxone Sodium 1 gm/ (Sodium Chloride) 100 mls @ 200 mls/hr IVPB Q24HR [facility] Last Admin: 02/08/19 16:51 Dose: 100 mls Vancomycin HCl 1.75 gm/ Sodium (Chloride) 500 mls @ 250 mls/hr IVPB 0200,1400 [facility] Last Admin: 02/08/19 13:30 Dose: 500 mls Ibuprofen (Motrin) 400 mg PO Q6H PRN PRN Reason: Pain Last Admin: 02/08/19 13:35 Dose: 400 mg Miscellaneous Medication (Pharmacy To Dose) 0 each IVPB PRN PRN PRN Reason: Pharmacy to dose [facility] Ondansetron HCl (Zofran Odt) 4 mg PO Q6H PRN PRN Reason: Nausea/Vomiting Ondansetron HCl (Zofran) 4 mg IVP Q6H PRN PRN Reason: Nausea/Vomiting Saccharomyces Boulardii (Florastor) 250 mg PO DAILY [facility] Last Admin: 02/08/19 09:14 Dose: 250 mg Senna/Docusate Sodium (Senokot S) 2 tab PO BID PRN PRN Reason: Constipation Sodium Chloride (Flush - Normal Saline) 10 ml IVF Q12HR [facility] Last Admin: 02/08/19 20:31 Dose: 10 ml Sodium Chloride (Flush - Normal Saline) 10 ml IVF PRN PRN PRN Reason: Saline Flush
[2019-02-09] MEDS: Vancomycin HCl 1.75 GM in Sodium Chloride 0.9% 500 ML IVPB SCH (01:08)
[2019-02-09 06:41] LABS: #Basophils 0.1 thou/uL (0.0-0.2); #Eosinphils 0.9 thou/uL (0.0-0.7); #Lymphocytes 2.2 thou/uL (1.20-3.40); #Monocytes 1.1 thou/uL (0.11-0.59); #Neutrophils 8.7 thou/uL (1.40-6.50); %Basophils 0.7 % (0.0-1.0); %Eosinophils 6.8 % (0.0-10.0); %Monocytes 8.6 % (0.0-10.0); %Neutrophils 66.9 % (42.0-75.0); Mean Corpuscular HGB CONC 31.6 g/dL (32.0-36.0); Mean Corpuscular Hemoglobin 26.4 pg (27.0-31.0); Mean Corpuscular Volume 83.6 fL (78.0-98.0); Mean Platelet Volume 7.7 fL (7.4-10.4); Platelet Count 352 thou/uL (130-400); RBC Distribution Width 13.2 % (11.5-14.5); Red Blood Cell (RBC) Count 4.94 mill/uL (4.70-6.10)
[2019-02-09 07:01] LABS: Anion Gap 12 mmol/L (10-20); BUN (Urea Nitrogen) 11 mg/dL (8.9-20.6); Calc. Creatinine Clearance 197 mL/min (70-130); Calcium 9.3 mg/dL (7.8-10.44); Carbon Dioxide 27 mmol/L (22-29); Chloride 102 mmol/L (98-107); Estimated GFR-MDRD Greater than 90; Glucose 87 mg/dL (70-105); Potassium 3.8 mmol/L (3.5-5.1); Sodium 137 mmol/L (136-145)
[2019-02-09] MEDS: cefTRIAXone\\ROCEPHIN 1 GM in Sodium Chloride 0.9% 100 ML IVPB SCH ×2 (07:43→20:35)
[2019-02-09] MEDS: Amlodipine 5 MG TAB PO SCH ×2 (07:44→20:35)
[2019-02-09] MEDS: Saccharomyces boulardii 250 MG CAP PO SCH (07:44)
[2019-02-09] MEDS: Enoxaparin Sodium 40 MG/0.4 ML SYRINGE SC SCH (07:45)
--- NOTE | 2019-02-09 22:23 | PDOC.PN ---
- Subjective Encounter Start Date: 02/09/19 Encounter Start Time: 12:30 Patient seen and examined for Cellulitis. No fever/chills. RLE pain +. No new complaints. No overnight events - Objective Resuscitation Status - Order Detail: 02/03/19 16:23 Resuscitation Status Routine Resuscitation Status: FULL: Full Resuscitation MAR Reviewed: Yes Vital Signs & Weight: Vital Signs (12 hours) Temp Pulse Resp BP BP Pulse Ox 02/09/19 20:35 90 102/66 02/09/19 20:25 95 02/09/19 19:00 99.0 F 108 H 17 168/87 H 96 02/09/19 16:00 99.0 F 109 H 18 144/83 H 95 02/09/19 11:00 99.1 F 97 18 155/90 H 94 L Weight Admit Weight 259 lb 3.2 oz Weight 259 lb 3.2 oz Result Diagrams: 02/09/19 05:31 02/09/19 05:31 EKG Reviewed by me: Yes Phys Exam - Physical Examination Constitutional: NAD Respiratory: no wheezing, no rhonchi Cardiovascular: RRR, no rub Gastrointestinal: soft, non-tender, positive bowel sounds Musculoskeletal: edema present RLE erythema Neurological: non-focal, moves all 4 limbs Dx/Plan - Plan DVT proph w/SCDs 1. Sepsis secondary to RLE cellulitis. 2. Hypertension 3. Codeine allergy. 4. Obesity with a BMI of 38.3. 5. Mild acute kidney injury on CKD stage 2. 6. Hypokalemia PLAN: Cont IV Ceftriaxone with wound care Prob dc in 24-48 hr if stable Cont current meds as below Review of Systems - Review of Systems Respiratory: negative: Cough, Dry, Shortness of Breath, Hemoptysis, SOB with Excertion, Pleuritic Pain, Sputum, Wheezing Cardiovascular: negative: chest pain, palpitations, orthopnea, paroxysmal nocturnal dyspnea, edema, light headedness, other - Medications/Allergies Allergies/Adverse Reactions: Allergies Allergy/AdvReac Type Severity Reaction Status Date / Time codeine Allergy Verified 02/03/19 15:22 Medications: Current Medications Acetaminophen (Tylenol) 650 mg PO Q4H PRN PRN Reason: Headache/Fever/Mild Pain (1-3) Last Admin: 02/07/19 15:53 Dose: 650 mg Amlodipine Besylate (Norvasc) 2.5 mg PO BID [facility] Last Admin: 02/09/19 20:35 Dose: 2.5 mg Bisacodyl (Dulcolax) 10 mg MO DAILYPRN PRN PRN Reason: Constipation Calcium Carbonate (Tums) 1,000 mg PO Q4H PRN PRN Reason: Heartburn or Indigestion Clonidine (Catapres) 0.1 mg PO Q4H PRN PRN Reason: Systolic BP > 160 Last Admin: 02/08/19 09:13 Dose: 0.1 mg Enoxaparin Sodium (Lovenox) 40 mg SC 0900 [facility] Last Admin: 02/09/19 07:45 Dose: 40 mg Hydralazine HCl (Apresoline) 10 mg SLOW IVP Q4H PRN PRN Reason: SBP Greater Than 180 Last Admin: 02/05/19 22:17 Dose: 10 mg Ceftriaxone Sodium 1 gm/ (Sodium Chloride) 100 mls @ 200 mls/hr IVPB 0800,2000 [facility] Last Admin: 02/09/19 20:35 Dose: 100 mls Ibuprofen (Motrin) 400 mg PO Q6H PRN PRN Reason: Pain Last Admin: 02/08/19 13:35 Dose: 400 mg Ondansetron HCl (Zofran Odt) 4 mg PO Q6H PRN PRN Reason: Nausea/Vomiting Ondansetron HCl (Zofran) 4 mg IVP Q6H PRN PRN Reason: Nausea/Vomiting Saccharomyces Boulardii (Florastor) 250 mg PO DAILY [facility] Last Admin: 02/09/19 07:44 Dose: 250 mg Senna/Docusate Sodium (Senokot S) 2 tab PO BID PRN PRN Reason: Constipation Sodium Chloride (Flush - Normal Saline) 10 ml IVF Q12HR [facility] Last Admin: 02/09/19 20:36 Dose: 10 ml Sodium Chloride (Flush - Normal Saline) 10 ml IVF PRN PRN PRN Reason: Saline Flush
[2019-02-10] MEDS: Acetaminophen 325 MG TAB PO PRN ×2 (09:08→17:08)
[2019-02-10] MEDS: cefTRIAXone\\ROCEPHIN 1 GM in Sodium Chloride 0.9% 100 ML IVPB SCH ×2 (09:08→21:16)
[2019-02-10] MEDS: Saccharomyces boulardii 250 MG CAP PO SCH (09:09)
[2019-02-10] MEDS: Enoxaparin Sodium 40 MG/0.4 ML SYRINGE SC SCH (09:10)
[2019-02-10] MEDS: Amlodipine 5 MG TAB PO SCH ×2 (09:51→21:17)
[2019-02-10] MEDS: Ibuprofen 200 MG TAB PO PRN (11:36)
[2019-02-10] MEDS: cloNIDine 0.1 MG TAB PO PRN (12:04)
--- NOTE | 2019-02-11 07:17 | PRG ---
DATE OF SERVICE: 02/10/2019 SUBJECTIVE: The patient is seen and examined at the bedside. He does not have much complaints to offer. He is not in much pain. His appetite is fair. OBJECTIVE: VITAL SIGNS: Blood pressure is 162/88, pulse is 99, respiratory rate is 18, O2 saturation is 97% on room air, and his temperature is 98.3, maximal temperature is 99.0. HEENT: Atraumatic and normocephalic. Eyes are PERRLA. Sclerae nonicteric. Oral mucosa is moist. NECK: Supple. LUNGS: Clear. HEART: S1 and S2 normal. ABDOMEN: Soft and nontender. Bowel sounds are present. No organomegaly. EXTREMITIES: The right lower extremity is wrapped below the knee and above the ankle. NEUROLOGIC: He is alert and oriented x4. There are no any motor or sensory deficits present. Cranial nerves are intact. LABORATORY DATA: Labs none today. Biology, blood cultures negative x5 days. IMPRESSION: 1. Right lower extremity cellulitis. 2. Sepsis secondary to right lower extremity cellulitis. 3. Hypertension. 4. Mild acute kidney injury. 5. Hypokalemia. PLAN: Switch him from IV ceftriaxone to . Job ID: [id number]
[2019-02-11 07:45] VITALS: BP 157/90; TEMP 97.8
[2019-02-11] MEDS: cefTRIAXone\\ROCEPHIN 1 GM in Sodium Chloride 0.9% 100 ML IVPB SCH (08:44)
[2019-02-11] MEDS: Enoxaparin Sodium 40 MG/0.4 ML SYRINGE SC SCH (08:44)
[2019-02-11] MEDS: Saccharomyces boulardii 250 MG CAP PO SCH (08:44)
[2019-02-11] MEDS ORDERED: Amlodipine 5 MG TAB PO SCH (09:00)
[2019-02-11] MEDS ORDERED: Amlodipine 10 MG TAB PO SCH (09:00)
--- NOTE | 2019-02-11 11:41 | DIS ---
DATE OF ADMISSION: 02/03/2019 DATE OF DISCHARGE: 02/11/2019 FINAL DIAGNOSES: 1. Right lower extremity cellulitis with big blister formation of the right calf. 2. Sepsis secondary to right lower extremity cellulitis. 3. Hypertension. 4. Mild kidney injury. 5. Hypokalemia, resolved. HOSPITAL COURSE: The patient is a 34-year-old male, who presented to the emergency room with right leg swelling of 2 days duration along with fever and chills. He did not have any injury. He started having some pain in the right lower extremity which was getting worse, started developing fever and chills along with nausea. He felt weak and fatigued. He denied any recent immobilization or travel. There was no dysuria, hematuria, urgency, cough, shortness of breath, or wheezing reported. In the emergency room, initial vitals show temperature of 99.5, respirations 14, pulse rate was 114, and blood pressure was 125/83. He was saturating 95% on room air. The right lower extremity Doppler was negative for DVT. CT of the right lower extremity showed changes consistent with cellulitis without any abscess. X-ray of the right tibia/fibula were negative. He received vancomycin and Zosyn in the emergency room and blood cultures were done. At the time of admission, his white count was up to 25.2, hemoglobin 14.4, hematocrit 46.1, platelet count 197. He had bandemia of 15%. Chemistry shows sodium of 137, potassium 3.5, chloride 100, CO2 of 28, BUN 17, creatinine 1.4. Lactic acid was normal. Creatinine in 2016 was 1.05. He was admitted with working diagnosis of sepsis secondary to right lower extremity cellulitis. He was continued on vancomycin and Zosyn. Cultures came back negative. He continued on Zosyn and vancomycin with Wound Care. Zosyn was changed to ceftriaxone, and erythema of the right lower extremity significantly improved. His white count went down to 13,000 two days ago. His vancomycin was stopped and he was continued on IV Rocephin. His temperature gradually went down. The last temperature was 97.8, respiratory rate 22, O2 saturation 97% on room air, and pulse is 93 with blood pressure of 157/90. He was seen and examined before his discharge. His leg looks better. The swelling is significantly down. Erythema is improved, although still present. He formed a big blister which popped on the back of his right leg in the lower part of the calf, but the fluid is serosanguinous. PHYSICAL EXAMINATION: LUNGS: Clear. HEART: S1 and S2 normal. No S3. No S4. No any murmur. ABDOMEN: Soft, obese. NEUROLOGICAL: He is alert and oriented x4. There is no any motor or sensory deficits. DISPOSITION: He is discharged home. DIET: He is going to stay on heart healthy diet with low salt. FOLLOWUP: He will follow up with his primary care physician in [address] Kushal Stanley and he will do appointment in 2 days with [facility]. MEDICATIONS: At the time of discharge: 1. Amlodipine 10 mg once a day. 2. Levofloxacin 500 mg once a day. 3. Senokot-S 2 tablets b.i.d. p.r.n. 4. Tramadol 100 mg 3 times a day p.r.n. 5. He will take Bactrim Double Strength one tablet twice a day and he will have prescription for that. Job ID: [id number]
== END 2019-02-11 14:29 | disposition home or self-care (01) | DRG 872 ==
LOC: ERS 12:46 → T4-A 14:22
PROVIDERS: ADMIT Internal Medicine; ATTEND Internal Medicine
DX: A41.9 Sepsis, unspecified organism (principal); L03.115 Cellulitis of right lower limb; N17.9 Acute kidney failure, unspecified; E66.9 Obesity, unspecified; N18.2 Chronic kidney disease, stage 2 (mild); I12.9 Hypertensive chronic kidney disease with stage 1 through stage 4 chronic kidney disease, or unspecified chronic kidney disease; S80.821A Blister (nonthermal), right lower leg, initial encounter; E87.6 Hypokalemia; Z68.38 Body mass index [BMI] 38.0-38.9, adult; Z88.5 Allergy status to narcotic agent; Z91.14 Patient's other noncompliance with medication regimen; F17.210 Nicotine dependence, cigarettes, uncomplicated
CPT/HCPCS: 36415; 80048; 80053; 80202; 83605; 83735; 85025; 87040; 96361; 96365; 96367; J0360; J0696; J1650; J1885; J2270; J2543; J3370; J7050

== ENCOUNTER 2019-02-25 13:09 | Outpatient (CLI) | payer MEDICARE ==
[2019-02-25] MEDS ORDERED: Sodium Chloride 0.9% 15 ML NEB ONE (17:37)
--- NOTE | 2019-02-25 17:55 | HP ---
HISTORY OF PRESENT ILLNESS: Mr. Christoph Lobo is a very pleasant 34-year-old gentleman, who presents to the wound center for evaluation of an ulceration of the right calf. The patient states that he was discharged from [facility] on 02/11/2019, after admission for sepsis secondary to right lower extremity cellulitis. The patient was admitted to [facility] on 02/03/2019, with right lower extremity cellulitis with the formation of a large blister over the right calf. During the patient's hospital stay, Mr. Lobo received IV antibiotics. He states that he has completed the courses of antibiotics prescribed for him at the time of discharge. The patient states that he has been performing dressing changes of Aquacel for the wound of his right calf on a daily basis with significant improvement in the appearance of the wound. PAST MEDICAL HISTORY: 1. Nephrolithiasis. 2. Hypertension. PAST SURGICAL HISTORY: Hernia repair. MEDICATIONS: 1. Norvasc. 2. Senna. 3. Tramadol as needed. ALLERGIES: CODEINE. SOCIAL HISTORY: Social history significant for tobacco use of 1 cigarettes per day for 15 years. The patient admits to only the occasional consumption of alcohol. FAMILY HISTORY: Family history significant for both diabetes mellitus and coronary artery disease. The patient states that his mother was diagnosed with both diabetes mellitus and coronary artery disease. PHYSICAL EXAMINATION: VITAL SIGNS: Temperature 98.1, pulse 101, respirations 19, and blood pressure 146/80. GENERAL: A 34-year-old gentleman, lying on stretcher in examination room, in no acute distress. HEENT: Normocephalic and atraumatic. NECK: No nuchal rigidity. CHEST: Clear to auscultation. CV: Regular rate and rhythm. ABDOMEN: Soft. EXTREMITIES: An ulceration over the right calf is present, which measures approximately 11.0 x 7.5 cm. Granulation tissue is present within the wound margins. No purulent drainage is associated with the wound. No erythema of the skin surrounding the wound is present. No maceration of the skin of the periwound is noted. A dorsalis pedis pulse is easily palpable on the right. Pxww-uh-odzituud edema of the right foot and lower leg are present on exam today. NEURO: Grossly nonfocal. ASSESSMENT AND PLAN: 1. Chronic venous hypertension with ulcer and inflammation. Xeroform gauze, followed by an ABD, Webril, and the 3M Coban 2 Layer Compression System will be applied to the right calf ulceration today. The patient is to return to the wound center in 1 week. As stated above, the patient has completed the courses of p.o. antibiotics prescribed for him at the time of discharge. The patient has been given a release in order to return to work. 2. Nephrolithiasis. 3. Hypertension. Job ID: [id number]
== END 2019-02-25 13:10 | disposition home or self-care (01) ==
LOC: WCC 13:09
PROVIDERS: ATTEND Family Medicine
DX: I87.331 Chronic venous hypertension (idiopathic) with ulcer and inflammation of right lower extremity (principal); L97.219 Non-pressure chronic ulcer of right calf with unspecified severity; N20.0 Calculus of kidney; I10 Essential (primary) hypertension; Z79.899 Other long term (current) drug therapy; Z88.5 Allergy status to narcotic agent
CPT/HCPCS: 29581; 99203; A4218; G0463

== ENCOUNTER 2019-03-07 15:32 | Outpatient (CLI) | payer MEDICARE ==
--- NOTE | 2019-03-07 15:52 | PRG ---
DATE OF SERVICE: 03/07/2019 HISTORY: Mr. Christoph Lobo is a very pleasant 34-year-old gentleman, who presents to the Wound Center for evaluation of an ulceration of the right calf. The patient previously stated that he was discharged from [facility] on 02/11/2019, after admission for sepsis secondary to right lower extremity cellulitis. The patient was admitted to [facility] on 02/03/2019, with right lower extremity cellulitis with the formation of a large blister over the right calf. During the patient's hospital stay, Mr. Lobo received IV antibiotics. He stated that he had completed the courses of antibiotics prescribed for him at the time of discharge. Prior to being seen in the Wound Center, the patient stated he had been performing dressing changes of Aquacel for the wound of his right calf on a daily basis with significant improvement in the appearance of the wound. After being seen in the Wound Center, the ulceration was dressed with Xeroform gauze, an ABD, Webril, and the 3M Coban 2 Layer Compression System. OBJECTIVE: VITAL SIGNS: Temperature 98.2, pulse 99, respirations 17, and blood pressure 147/82. EXTREMITIES: An ulceration over the right calf is present, which measures approximately 10.8 x 7.0 cm. The dimensions of the wound at the time of the patient's last visit were approximately 11.0 x 7.5 cm. Granulation tissue is present within the wound margins. No purulent drainage is associated with the wound. No cellulitis of the right lower extremity is appreciated. No maceration of the skin of the periwound is noted. Dgur-lc-nwjorvki edema of the right foot and lower leg is present on exam today. ASSESSMENT AND PLAN: 1. Chronic venous hypertension with ulcer and inflammation. Xeroform gauze, followed by an ABD, Webril, and the 3M Coban 2 Layer Compression System will be applied to the right calf ulceration today. The patient is to return to the Wound Center in 1 week. The patient was previously given a release in order to return to work. 2. Nephrolithiasis. 3. Hypertension. Job ID: [id number]
[2019-03-07] MEDS ORDERED: Lidocaine 2% 11 ML SYR ONE (16:25)
[2019-03-07] MEDS ORDERED: Sodium Chloride 0.9% 15 ML NEB ONE (16:25)
== END 2019-03-07 15:33 | disposition home or self-care (01) ==
LOC: WCC 15:32
PROVIDERS: ATTEND Family Medicine
DX: I87.331 Chronic venous hypertension (idiopathic) with ulcer and inflammation of right lower extremity (principal); L97.219 Non-pressure chronic ulcer of right calf with unspecified severity; N20.0 Calculus of kidney; I10 Essential (primary) hypertension
CPT/HCPCS: 29581; A4218

== ENCOUNTER 2019-03-14 15:30 | Outpatient (CLI) | payer MEDICARE ==
--- NOTE | 2019-03-14 14:46 | PRG ---
DATE OF SERVICE: 03/14/2019 HISTORY: Mr. Christoph Loob is a very pleasant 34-year-old gentleman, who presented to the Wound Center for evaluation of an ulceration of the right calf. The patient previously stated that he was discharged from [facility] on 02/11/2019, after admission for sepsis secondary to right lower extremity cellulitis. The patient was admitted to [facility] on 02/03/2019, with right lower extremity cellulitis with the formation of a large blister over the right calf. During the patient's hospital stay, Mr. Lobo received IV antibiotics. He stated that he had completed the courses of antibiotics prescribed for him at the time of discharge. Prior to being seen in the Wound Center, the patient stated he had been performing dressing changes of Aquacel for the wound of his right calf on a daily basis with significant improvement in the appearance of the wound. After being seen in the Wound Center, the ulceration was dressed with Xeroform gauze, an ABD, Webril, and a 3M Coban 2 Layer Compression System. The patient has been receiving the preceding dressing changes on a weekly basis. PHYSICAL EXAMINATION: VITAL SIGNS: Temperature 97.8, pulse 94, respirations 17, blood pressure 159/86. EXTREMITIES: An ulceration over the right calf is present, which measures approximately 11.5 x 6.8 cm. The dimensions of the wound at the time of the patient's last visit were approximately 10.8 x 7.0 cm. Granulation tissue is present within the wound margins. No purulent drainage is associated with the wound. No cellulitis of the right lower extremity is appreciated. No maceration of the skin of the periwound is noted. Coef-bq-wgctarbq edema of the right foot and lower leg is present on exam today. ASSESSMENT AND PLAN: 1. Chronic venous hypertension with ulcer and inflammation. Xeroform gauze, followed by an ABD, Webril, and the 3M Coban 2 Layer Compression System will be applied to the right calf ulceration today. The patient is to return to the Wound Center in 1 week for a dressing change. I will see Mr. Lobo again in 2 weeks. The patient was previously given a release in order to return to work. 2. Nephrolithiasis. 3. Hypertension. Job ID: [id number]
[2019-03-14] MEDS ORDERED: Sodium Chloride 0.9% 15 ML NEB ONE (16:20)
== END 2019-03-14 15:31 | disposition home or self-care (01) ==
LOC: WCC 15:30
PROVIDERS: ATTEND Family Medicine
DX: L97.219 Non-pressure chronic ulcer of right calf with unspecified severity (principal); N20.0 Calculus of kidney; I10 Essential (primary) hypertension
CPT/HCPCS: 29581; A4218

== ENCOUNTER 2019-03-21 14:36 | Outpatient (CLI) | payer MEDICARE ==
[2019-03-21] MEDS ORDERED: Sodium Chloride 0.9% 15 ML NEB ONE (15:00)
== END 2019-03-21 14:37 | disposition home or self-care (01) ==
LOC: WCC 14:36
PROVIDERS: ATTEND Family Medicine
DX: I87.331 Chronic venous hypertension (idiopathic) with ulcer and inflammation of right lower extremity (principal); L97.219 Non-pressure chronic ulcer of right calf with unspecified severity; N20.0 Calculus of kidney; I10 Essential (primary) hypertension
CPT/HCPCS: 29581; A4218

== ENCOUNTER 2019-04-04 15:20 | Outpatient (CLI) | payer MEDICARE ==
--- NOTE | 2019-04-04 17:26 | PRG ---
DATE OF SERVICE: 04/04/2019 HISTORY: Mr. Chrsitoph Lobo is a very pleasant 34-year-old gentleman, who presents to the Wound Center for evaluation of an ulceration of the right calf. Previously, the patient stated that he was discharged from [facility] on 02/11/2019, after admission for sepsis secondary to right lower extremity cellulitis. The patient was admitted to [facility] on 02/03/2019, with right lower extremity cellulitis with the formation of a large blister over the right calf. During the patient's hospital stay, Mr. Lobo received IV antibiotics. He stated that he had completed the courses of antibiotics prescribed for him at the time of discharge. Prior to being seen in the Wound Center. The patient stated he had been performing dressing changes of Aquacel for the wound of his right calf on a daily basis with significant improvement in the appearance of the wound. After being seen in the Wound Center, the ulceration was dressed with Xeroform gauze, an ABD, Webril, and the 3M Coban 2 Layer Compression System. The patient received these dressing changes on a weekly basis. PHYSICAL EXAMINATION: VITAL SIGNS: Temperature 97.7, pulse 104, respirations 18, blood pressure 169/93. EXTREMITIES: The ulceration over the right calf has healed completely. ASSESSMENT AND PLAN: 1. Chronic venous hypertension with ulcer and inflammation. As stated above, the wound has completely healed. Mr. Lobo will be discharged from clinic today with followup on a p.r.n. basis. 2. Nephrolithiasis. 3. Hypertension. Job ID: [id number]
== END 2019-04-04 15:21 | disposition home or self-care (01) ==
LOC: WCC 15:20
PROVIDERS: ATTEND Family Medicine
DX: I87.331 Chronic venous hypertension (idiopathic) with ulcer and inflammation of right lower extremity (principal); N20.0 Calculus of kidney
CPT/HCPCS: 97602

== ENCOUNTER 2019-12-20 13:25 | Emergency (ER) | payer MEDICARE ==
[2019-12-20] MEDS ORDERED: Lidocaine 1% w/Epinephrine 1:100K 20 ML VIAL ONE (13:55)
== END 2019-12-20 14:50 | disposition home or self-care (01) ==
LOC: ERS 13:25
DX: L02.412 Cutaneous abscess of left axilla (principal); I10 Essential (primary) hypertension; F17.210 Nicotine dependence, cigarettes, uncomplicated; Z87.442 Personal history of urinary calculi
CPT/HCPCS: 10061

== ENCOUNTER 2021-06-04 10:29 | Emergency (ER) | payer OTHER, MEDICARE, MEDICAID ==
[2021-06-04] MEDS ORDERED: Ketorolac Tromethamine 30 MG/ML VIAL ONE (11:24)
== END 2021-06-04 11:48 | disposition home or self-care (01) ==
LOC: ERS 10:29
DX: M54.5 Low back pain (principal); I10 Essential (primary) hypertension; E66.01 Morbid (severe) obesity due to excess calories; F17.210 Nicotine dependence, cigarettes, uncomplicated; X50.9XXA Other and unspecified overexertion or strenuous movements or postures, initial encounter; Y92.89 Other specified places as the place of occurrence of the external cause; Y99.0 Civilian activity done for income or pay
CPT/HCPCS: 96372; 99283; J1885

== ENCOUNTER 2021-11-12 16:15 | Emergency (ER) | payer MEDICARE, MEDICAID | END 2021-11-12 18:26 | disposition home or self-care (01) | LOC: ERS 16:15 | DX: M10.071 Idiopathic gout, right ankle and foot (principal); I10 Essential (primary) hypertension; F17.210 Nicotine dependence, cigarettes, uncomplicated ==

== ENCOUNTER 2022-01-16 17:37 | Emergency (ER) | payer MEDICARE, MEDICAID ==
[2022-01-16] MEDS ORDERED: Ketorolac Tromethamine 30 MG/ML VIAL ONE (19:22)
== END 2022-01-16 20:08 | disposition home or self-care (01) ==
LOC: ERS 17:37
DX: M54.41 Lumbago with sciatica, right side (principal); I10 Essential (primary) hypertension; F17.290 Nicotine dependence, other tobacco product, uncomplicated
CPT/HCPCS: 96372; 99283; J1885